=== PATIENT | female | born 1970 | race Caucasian/White ===

== ENCOUNTER 2020-07-02 17:28 | Emergency (ER) | payer MEDICARE ==
[2020-07-02] MEDS ORDERED: Dexamethasone 10 MG/ML VIAL ONE (17:56)
[2020-07-02] MEDS ORDERED: Metoclopramide HCl 10 MG/2 ML VIAL ONE (17:57)
[2020-07-02] MEDS ORDERED: diphenhydrAMINE 50 MG/ML VIAL ONE (17:57)
[2020-07-02] MEDS ORDERED: Ketorolac Tromethamine 15 MG/ML VIAL ONE (17:57)
== END 2020-07-02 19:13 | disposition home or self-care (01) ==
LOC: CSHERS 17:28
DX: G43.909 Migraine, unspecified, not intractable, without status migrainosus (principal); I10 Essential (primary) hypertension; Z79.899 Other long term (current) drug therapy
CPT/HCPCS: 96365; 96375; J1100; J1200; J1885; J2765

== ENCOUNTER 2022-01-13 08:27 | Emergency (ER) | payer MEDICARE ==
[2022-01-13] MEDS ORDERED: Metoclopramide HCl 10 MG/2 ML VIAL ONE (08:54)
[2022-01-13] MEDS ORDERED: diphenhydrAMINE 50 MG/ML VIAL ONE (08:55)
[2022-01-13 09:15] LABS: #Basophils 0.1 10x3/uL (0.0-0.2); #Eosinphils 0.3 10x3/uL (0.0-0.5); #Monocytes 0.6 10x3/uL (0.0-1.1); #Neutrophils 3.1 10x3/uL (1.5-8.4); %Basophils 1.5 % (0.0-2.0); %Eosinophils 3.9 % (0.0-6.0); %Lymphocytes 37.9 % (18.0-47.0); %Monocytes 9.2 % (0.0-10.0); %Neutrophils 47.2 % (40.0-75.0); Hemoglobin 13.8 g/dL (12.0-15.5); Mean Corpuscular HGB CONC 35.6 g/dL (32.0-36.0); Mean Corpuscular Hemoglobin 30.9 pg (27.0-33.0); Mean Platelet Volume 9.4 fl (7.4-10.4); Platelet Count 326 10x3/uL (150-450); RBC Distribution Width 12.4 % (11.5-14.5); Red Blood Cell (RBC) Count 4.46 10x6/uL (3.90-5.03); White Blood Cell (WBC) Count 6.6 10x3/uL (3.5-10.5)
[2022-01-13 09:22] LABS: ALT (SGPT) Less than 6 U/L (8-55); AST (SGOT) 13 U/L (5-34); Albumin 4.3 g/dL (3.5-5.0); Alkaline Phosphatase 74 U/L (40-110); Anion Gap 13 mmol/L (10-20); BUN (Urea Nitrogen) 16 mg/dL (9.8-20.1); Calc. Creatinine Clearance 0 mL/min (70-130); Calcium 9.6 mg/dL (7.8-10.44); Carbon Dioxide 26 mmol/L (22-29); Chloride 105 mmol/L (98-107); Estimated GFR 74; Globulin 2.5 g/dL (2.4-3.5); Glucose 105 mg/dL (70-105); Protein, Total 6.8 g/dL (6.0-8.3); Sodium 140 mmol/L (136-145)
== END 2022-01-13 11:20 | disposition home or self-care (01) ==
LOC: CSHERS 08:27
DX: R51.9 Headache, unspecified (principal); I10 Essential (primary) hypertension
CPT/HCPCS: 36415; 70450; 80053; 85025; 96374; 96375; J1200; J2765